=== PATIENT | male | born 1960 | race American Indian/Alaskan Native ===

== ENCOUNTER 2016-08-28 15:23 | Outpatient (CLI) | payer MEDICAID ==
--- NOTE | 2016-08-28 16:16 | XRay Report ---
CHEST 2 VIEWS INDICATION: Shortness of breath, cough. COMPARISON: None similar at this institution. FINDINGS: PA and lateral chest radiographs demonstrate extensive left mid to lower lung masses/opacity, partly obscuring the left heart border with the largest approximately 10 cm occupying the mid to lower lung zone. Another approximately 5 cm mass may be located superior to it. Another possibly lobulated or 2 superimposed masses in the right lower lung zone measure approximately 7.4 x 6.2 cm in aggregate. No large right pleural effusion or CHF. Numerous right axillary/right breast region surgical clips as also some along the posteroinferior chest wall. Unremarkable bones. CONCLUSION: Left more than right pulmonary metastatic/neoplastic disease with few other findings, as above. Thank you for the opportunity to participate in this patient's care.
== END 2016-08-28 15:24 | disposition home or self-care (01) ==
LOC: XRAY 15:23
PROVIDERS: ATTEND Internal Medicine
DX: C78.02 Secondary malignant neoplasm of left lung (principal); C78.01 Secondary malignant neoplasm of right lung; R06.02 Shortness of breath; R05 Cough
CPT/HCPCS: 71020

== ENCOUNTER 2016-09-06 13:38 | Outpatient (CLI) | payer MEDICAID ==
[2016-09-06 14:31] LABS: Blood Urea Nitrogen 13 mg/dL (9-20); Calcium 8.9 mg/dL (8.4-10.2); Carbon Dioxide 23 mmol/L (22-30); Chloride 99.6 mmol/L (98-107); Glucose 97 mg/dL (75-100); Potassium 4.2 mmol/L (3.6-5.0); Sodium 138 mmol/L (137-145)
[2016-09-06 14:39] LABS: Anion Gap 20 mmol/L
[2016-09-06] MEDS ORDERED: NACL ONE (14:58)
--- NOTE | 2016-09-06 15:56 | Cat Scan Report ---
CT CHEST WITH CONTRAST INDICATION: Bilateral lung masses. COMPARISON: 08/28/2016 CXR. FINDINGS: Chest CT performed following IV contrast. Axial, sagittal and coronal CT reconstructions demonstrate normal heart size, though mildly displaced towards the right secondary to extensive, heterogeneous soft tissue masses in the left mid to lower chest situated within the left upper lobe inferiorly and near completely involving the left lower lobe. In the greatest dimensions, it is approximately 16.1 cm AP x 9.6 cm transverse, axial series 2, image 151 with craniocaudal extent of 17.5 cm. Mild left lower lobe atelectasis/air bronchograms in the small aerated portion incidentally noted. Multiple smaller left lung nodules also identified. Right lung also demonstrates numerous masses/nodules, the largest in the right lower lobe measuring 5.3 x 4 cm, axial image 134, series 2. Approximately 2.6 cm peripheral right lower lobe airspace opacity with subtle surrounding groundglass haziness also seen on axial image 168, series 2. Mild scarring/possible postradiation change in the right upper lobe periphery may also be present on axial image 51, amongst others. No large pericardial or pleural effusions. No aortic aneurysm or dissection. No suspicious pulmonary arterial filling defects, to the extent assessed. However, subtle filling defects within the right lower lobe pulmonary veins extending centrally into the left atrium noted, measuring approximately 4.5 x 1.3 cm as on axial image 136, series 2. Patent central airway. Slight right hilar lymphoid soft tissue prominence measuring approximately 1 x 0.5 cm, axial image 123, series 2. No size significant axillary lymphadenopathy. Multiple right axillary surgical clips again noted. Unremarkable thyroid. Nonspecific distal esophageal wall thickening, not excluded for gastroesophageal reflux and/or hiatal hernia, amongst others. No significant abnormality in the imaged upper abdomen. Mild upper lumbar degenerative changes. Few surgical clips/densities along the right paraspinal soft tissues also noted. CONCLUSION: 1. Innumerable bilateral lung neoplastic/metastatic masses, the largest occupying the left mid to lower lung zones, as detailed above. 2. Aorta and pulmonary artery appear grossly unremarkable, though nonfilling of the right pulmonary veins extending into the left atrium is suspicious for clot/thrombus, as described above. 3. Few other findings, including iatrogenic/postsurgical changes, as described. I phoned the above results to Dr. Hammond, 3:40 PM, 09/06/2016. Thank you for the opportunity to participate in this patient's care.
== END 2016-09-06 13:39 | disposition home or self-care (01) ==
LOC: CT 13:38
PROVIDERS: ATTEND Internal Medicine
DX: C78.02 Secondary malignant neoplasm of left lung (principal); C78.01 Secondary malignant neoplasm of right lung; J98.11 Atelectasis; K21.9 Gastro-esophageal reflux disease without esophagitis; K44.9 Diaphragmatic hernia without obstruction or gangrene; M47.896 Other spondylosis, lumbar region
CPT/HCPCS: 36415; 71260; 80048